=== PATIENT | male | born 1935 | race Caucasian/White ===

== ENCOUNTER 2022-06-25 11:21 | Outpatient (CLI) | payer MEDICARE, BC, SELFPAY | END 2022-06-25 11:22 | disposition home or self-care (01) | LOC: LKVREF 06-26 11:01 | PROVIDERS: PCP Family Medicine; Visit Provider Family Medicine | DX: R42 Dizziness and giddiness (principal) | CPT/HCPCS: 80048 ==

== ENCOUNTER 2023-05-09 22:09 | Outpatient (REF) | payer MEDICARE, BC, SELFPAY ==
[2023-05-09 23:03] LABS: Free T4 Free Thyroxine* 1.26 ng/dL (0.70-1.85)
[2023-05-10 08:49] LABS: Glucose* 151 mg/dL (60-115)
[2023-05-10 08:49] LABS: Glucose* 97 mg/dL (60-115)
[2023-05-16 10:28] LABS: Vitamin B6 (Pyridoxal 5-Phos) 13.9 nmol/L (20.0-125.0)
== END 2023-05-09 22:10 | disposition home or self-care (01) ==
LOC: NPINS 22:09
PROVIDERS: PCP Family Medicine; Visit Provider Psychiatry & Neurology Neurology
DX: R41.3 Other amnesia (principal); G60.9 Hereditary and idiopathic neuropathy, unspecified; G20 Parkinson's disease; G25.81 Restless legs syndrome
CPT/HCPCS: 82947; 84207; 84439

== ENCOUNTER 2023-09-12 08:55 | Outpatient (CLI) | payer MEDICARE, BC, SELFPAY | END 2023-09-12 08:56 | disposition home or self-care (01) | LOC: NFLDREF 09-20 04:18 | PROVIDERS: PCP Family Medicine; Referring Provider Family Medicine; Visit Provider Family Medicine | DX: Z13.6 Encounter for screening for cardiovascular disorders (principal); Z13.9 Encounter for screening, unspecified | CPT/HCPCS: 80053; 80061 ==

== ENCOUNTER 2023-09-16 14:52 | Outpatient (CLI) | payer MEDICARE, BC, SELFPAY | END 2023-09-16 14:53 | disposition home or self-care (01) | PROVIDERS: PCP Family Medicine; Visit Provider Family Medicine | DX: E78.1 Pure hyperglyceridemia (principal); G62.9 Polyneuropathy, unspecified; G25.81 Restless legs syndrome; Z13.0 Encounter for screening for diseases of the blood and blood-forming organs and certain disorders involving the immune mechanism; G20.A1 Parkinson's disease without dyskinesia, without mention of fluctuations; R41.3 Other amnesia | CPT/HCPCS: 82607; 82728; 84443 ==

== ENCOUNTER 2024-01-15 06:05 | Emergency (ER) | payer MEDICARE, BC, SELFPAY ==
[2024-01-15 06:08] VITALS: BP 134/71; PULSE 83; RESP 16; TEMP 36.5; O2SAT 94; BMI 25.1
--- NOTE | 2024-01-15 06:30 | CT_ITS ---
Patient: RODNEY MARIE Facility:?[facility] [place] [facility] Patient ID:?[id number] Site Patient ID:?[id number]. Site :?[id number] Study:?CT-Abdomen/Pelvis W/ ISOVUE 370-01/15/2024 7:39:54 AM Ordering Physician:LILIAN Final Report: INDICATION: LLQ PAIN TECHNIQUE: CT abdomen and pelvis with 89 cc Isovue 370 IV contrast. COMPARISON: CT abdomen pelvis November 13, 2018. FINDINGS: The liver is normal in size, shape and attenuation. Gallbladder and biliary tree are normal. Punctate calcifications within the spleen likely sequela of prior granulomatous process. No adrenal nodule. Moderately atrophic pancreas. Kidneys enhance symmetrically. Bilateral renal parapelvic cysts. No hydronephrosis. Unremarkable bladder. No evidence of bowel obstruction. Unremarkable appendix. Mild stool burden. Colonic diverticulosis without evidence of diverticulitis. The stomach is decompressed. Small hiatal hernia. No significant free fluid and no free air. Severe abdominal aortic atherosclerotic calcifications. Tiny fat containing umbilical hernia. Prostatomegaly measuring 5.3 x 6.1 x 6.4 centimeters, previously 5.0 x 5.7 x 5.2 centimeters. Similar appearance of questionable heterogenous enhancing nodule within the left anterior prostate. There recommend correlation with physical exam and PSA. Left basilar opacities which may represent atelectasis or consolidation. Coronary artery calcifications. Multilevel degenerate spondylosis without evidence of acute fracture or aggressive osseous lesion. IMPRESSION: 1. Increasing prostatomegaly with similar appearance of questionable heterogenous enhancing nodule within the left anterior prostate. Similar to recommend correlation with physical exam and PSA. 2. Colonic diverticulosis without evidence of diverticulitis. 3. Left basilar opacities which may represent atelectasis or consolidation. 4. Small hiatal hernia. Please note that all CT scans at this facility use dose modulation, iterative reconstruction, and/or weight-based dosing when appropriate to reduce radiation dose to as low as reasonably achievable. Dictated by Blue Valladares MD @ 01/15/2024 8:05:56 AM Signed by:?Blue Valladares MD @01/15/2024 8:05:56 AM (Electronic Signature)
--- NOTE | 2024-01-15 06:37 | ED.GENADULT ---
HPI - General Adult General Chief complaint: Abdominal Pain <Myrna Clemente MD - Last Filed: 01/19/24 01:34> Stated complaint: abdominal pain <Myrna Clemente MD - Last Filed: 01/19/24 01:34> Time Seen by Provider: 01/15/24 06:16 <Myrna Clemente MD - Last Filed: 01/19/24 01:34> Source: patient and EMS <Myrna Clemente MD - Last Filed: 01/19/24 01:34> Mode of arrival: EMS <Myrna Clemente MD - Last Filed: 01/19/24 01:34> History of Present Illness HPI narrative: 88-year-old male with history of dementia and Parkinson's disease presents to the emergency department with left-sided abdominal pain that started last night. He is not much of a historian but he is very sweet. He can not really localize the pain on description or exam for me, is very vague. States that his last bowel movement was 2 days ago, no diarrhea or bloody stools. Appetite has remained good. No nausea or vomiting. I asked if the pain was worsening causing him to be concerned to come to the emergency department in the wee hours of the morning, he cannot really answer that question for me. He has not tried taking any Tylenol, ibuprofen or any other interventions to try to help with his pain. He wonders if it is a pulled muscle. There is no fall, injury or trauma. No dysuria, hematuria. No rash, no itching. No fever. Denies any history of similar symptoms. No prior history of abdominal surgeries per his report. When I review his history, I see that he has a history of diverticulitis. When asked about this he does confirm that he has had this in the past. Says pain is worse with movement. Does not really give much else in terms of history. Past medical history notable for Parkinson's disease. Cognitive impairment per his last annual exam with his primary physician. Home meds are Flomax and Sinemet. Review of systems is notable for the abdominal and musculoskeletal symptoms as described above only, otherwise denies times 12 systems. <Myrna Clemente MD - Last Filed: 01/19/24 01:34> Related Data Home medications: Home Medications Medication Instructions Recorded Confirmed carbidopa 25 mg-levodopa 100 mg 2 tab PO DIRECTED 06/25/22 09/16/23 tablet carbidopa ER 50 mg-levodopa 200 mg 1 tab PO DIRECTED 06/25/22 09/16/23 tablet,extended release Previous Rx's Medication Instructions Recorded donepezil 5 mg tablet 5 mg PO QDAY #90 tabs 09/16/23 tamsulosin 0.4 mg capsule 0.4 mg PO QDAY #90 caps 09/16/23 triamcinolone acetonide 0.1 % 1 applic topical BID PRN dry skin 09/16/23 topical cream #80 grams azithromycin 250 mg tablet See Rx Instructions PO .COMPLEX #6 01/15/24 (Zithromax Z-Nnamdi) tabs <Myrna Clemente MD - Last Filed: 01/19/24 01:34> Allergies/adverse reactions: Allergies Allergy/AdvReac Type Severity Reaction Status Date / Time No Known Drug Allergies Allergy Unverified 09/16/23 14:24 <Myrna Clemente MD - Last Filed: 01/19/24 01:34> [facility] Medical History: Medical History Encounter for Medicare annual wellness exam ?Z00.00 - Encounter for general adult medical examination without abnormal findings (ICD-10) Memory change ?R41.3 - Other amnesia (ICD-10) 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 - Personal history of other benign neoplasm (ICD-10) <Myrna Clemente MD - Last Filed: 01/19/24 01:34> Surgical History: Surgical History History of third molar tooth extraction ?K08.409 - Partial loss of teeth, unspecified cause, unspecified class (ICD-10) History of colonoscopy (05/25/10) ?Z98.890 - Other specified postprocedural states (ICD-10) <Myrna Clemente MD - Last Filed: 01/19/24 01:34> Family History: Family History Mother Stroke Father CHF (congestive heart failure) <Myrna Clemente MD - Last Filed: 01/19/24 01:34> Social History: Social History Narrative: exercises regularly- on treadmill at home nonsmoker rarely consumes alcohol Smoking Status: Never smoker Non-prescribed substance use: denies use Little interest or pleasure in doing things: more than half the days Feeling down, depressed, or hopeless: not at all <Myrna Clemente MD - Last Filed: 01/19/24 01:34> Exam Const: Vital Signs, click to edit/add: Vital Signs - 24 hr 01/15/24 06:08 01/15/24 07:55 01/15/24 08:02 Temperature 97.7 F Pulse Rate [Left P ulse Oximeter] 83 Respiratory Rate 16 Blood Pressure 143/77 H 151/78 H Blood Pressure [Ri ght Upper Arm] 134/71 Pulse Oximetry 94 Oxygen Delivery Me thod Room Air <Mryna Clemente MD - Last Filed: 01/19/24 01:34> Vital Signs, click to edit/add: Vital Signs - 24 hr 01/15/24 06:08 01/15/24 07:55 01/15/24 08:02 Temperature 97.7 F Pulse Rate [Left P ulse Oximeter] 83 Respiratory Rate 16 Blood Pressure 143/77 H 151/78 H Blood Pressure [Ri ght Upper Arm] 134/71 Pulse Oximetry 94 Oxygen Delivery Me thod Room Air <Chon Vazquez MD - Last Filed: 01/15/24 08:35> Documenting provider has reviewed patient's vital signs: yes <Myrna Clemente MD - Last Filed: 01/19/24 01:34> Common normals: no apparent distress and alert <Myrna Clemente MD - Last Filed: 01/19/24 01:34> General appearance: cooperative and comfortable <Myrna Clemente MD - Last Filed: 01/19/24 01:34> Other: Cognitive impairment noted. No signs of acute delirium <Myrna Clemente MD - Last Filed: 01/19/24 01:34> HENMT: Common normals: normocephalic, moist oral mucous membranes and oropharynx normal <MD Praveen Foster Last Filed: 01/19/24 01:34> Head and scalp: normocephalic <MD Praveen Foster Last Filed: 01/19/24 01:34> Face and sinus: normal facial exam <MD Praveen Foster Last Filed: 01/19/24 01:34> Mouth: oral and palatal mucosa normal <MD Praveen Foster Last Filed: 01/19/24 01:34> Throat: posterior oropharynx normal <MD Praveen Foster Last Filed: 01/19/24 01:34> Eye: Common normals: conjunctivae normal <MD Praveen Foster Last Filed: 01/19/24 01:34> General eye: normal appearance of both eyes <MD Praveen Foster Last Filed: 01/19/24 01:34> Conjunctiva: conjunctiva(e) normal <MD Praveen Foster Last Filed: 01/19/24 01:34> Neck & C-Spine: Common normals: full ROM and no lymphadenopathy <MD Praveen Foster Last Filed: 01/19/24 01:34> Resp: Common normals: normal respiratory effort, no use of accessory muscles and clear to auscultation bilaterally <MD Praveen Foster Last Filed: 01/19/24 01:34> Effort & inspection: able to speak in complete sentences <MD Praveen Foster Last Filed: 01/19/24 01:34> Auscultation: clear to auscultation bilaterally <MD Praveen Foster Last Filed: 01/19/24 01:34> Cardio: Common normals: regular rate, regular rhythm, S1 normal heart sound, S2 normal heart sound and no murmurs <MD Praveen Foster Last Filed: 01/19/24 01:34> Rate: regular rate <MD Praveen Foster Last Filed: 01/19/24 01:34> Rhythm: regular rhythm <MD Praveen Foster Last Filed: 01/19/24 01:34> Heart sounds: S1 normal and S2 normal <MD Praveen Foster Last Filed: 01/19/24 01:34> GI: Common normals: Normal to inspection, nondistended, normoactive bowel sounds present, no hepatosplenomegaly and no masses <MD Praveen Foster Last Filed: 01/19/24 01:34> Palpation: no hepatosplenomegaly <MD Praveen Foster Last Filed: 01/19/24 01:34> Other: Tenderness to palpation of left lower quadrant with no rebound tenderness or guarding. <MD Praveen Foster Last Filed: 01/19/24 01:34> : Common normals: no CVA tenderness <MD Praveen Foster Last Filed: 01/19/24 01:34> Bladder/kidney exam: no CVA tenderness <MD Praveen Foster Last Filed: 01/19/24 01:34> Back & Pelvis: Common normals: no CVA tenderness <MD Praveen Foster Last Filed: 01/19/24 01:34> Thoracic spine/upper back: normal to inspection; no thoracic spinal tenderness and no paraspinal muscle tenderness <MD Praveen Foster Last Filed: 01/19/24 01:34> Lumbar spine/lower back: normal to inspection; no lumbar spinal tenderness and no paraspinal muscle tenderness <MD Praveen Foster Last Filed: 01/19/24 01:34> Extremity: Common normals: normal to inspection and normal capillary refill <MD Praveen Foster Last Filed: 01/19/24 01:34> Other: Trace dependent edema. <MD Praveen Foster Last Filed: 01/19/24 01:34> Neuro: Sensorium/orientation: alert <MD Praveen Foster Last Filed: 01/19/24 01:34> Other: Fairly good strength. Can pull himself up with the side rails and hold himself steady. No obvious focal deficit. Normal speech. <Myrna Clemente MD - Last Filed: 01/19/24 01:34> Psych: Attitude: engaged <Myrna Clemente MD - Last Filed: 01/19/24 01:34> Activity/motor behavior: appropriate eye contact <MD Praveen Foster Last Filed: 01/19/24 01:34> Insight: fair <Myrna Clemente MD - Last Filed: 01/19/24 01:34> Judgement: fair <MD Praveen Foster Last Filed: 01/19/24 01:34> Skin: Common normals: no rashes or lesions noted <Myrna Clemente MD - Last Filed: 01/19/24 01:34> General skin exam: no rashes or lesions noted <Myrna Clemente MD - Last Filed: 01/19/24 01:34> Course Course ED Course: 88-year-old male with limited history due to cognitive impairment and vague description of left-sided abdominal pain. Exam is suggestive of left lower quadrant abdominal pain. Differential diagnosis including kidney stone, pyelonephritis, most likely diverticulitis, cannot exclude colitis, pancreatitis, musculoskeletal etiology, amongst others. Recommend CT of the abdomen and pelvis, urinalysis, basic labs. Will start with just some Tylenol for pain control as he does seem fairly comfortable and we can always advance this as needed. Will place peripheral IV to facilitate CT scan. <Myrna Clemente MD - Last Filed: 01/19/24 01:34> Vital Signs Vital signs: Initial Vital Signs Temperature 97.7 F 01/15/24 06:08 Temperature Source Temporal Artery Scan 01/15/24 06:08 Pulse Rate 83 01/15/24 06:08 Respiratory Rate 16 01/15/24 06:08 Blood Pressure 134/71 01/15/24 06:08 Blood Pressure Mean 92 01/15/24 06:08 Blood Pressure Position Supine 01/15/24 06:08 Pulse Oximetry 94 01/15/24 06:08 Oxygen Delivery Method Room Air 01/15/24 06:08 Vital Signs Temperature 97.7 F 01/15/24 06:08 Pulse Rate 83 01/15/24 06:08 Respiratory Rate 16 01/15/24 06:08 Blood Pressure 134/71 01/15/24 06:08 Pulse Oximetry 94 01/15/24 06:08 Oxygen Delivery Method Room Air 01/15/24 06:08 Temperature 97.7 F 01/15/24 06:08 Pulse Rate 83 01/15/24 06:08 Respiratory Rate 16 01/15/24 06:08 Blood Pressure 151/78 H 01/15/24 08:02 Pulse Oximetry 94 01/15/24 06:08 Oxygen Delivery Method Room Air 01/15/24 06:08 <Myrna Clemente MD - Last Filed: 01/19/24 01:34> Initial Vital Signs Temperature 97.7 F 01/15/24 06:08 Temperature Source Temporal Artery Scan 01/15/24 06:08 Pulse Rate 83 01/15/24 06:08 Respiratory Rate 16 01/15/24 06:08 Blood Pressure 134/71 01/15/24 06:08 Blood Pressure Mean 92 01/15/24 06:08 Blood Pressure Position Supine 01/15/24 06:08 Pulse Oximetry 94 01/15/24 06:08 Oxygen Delivery Method Room Air 01/15/24 06:08 Vital Signs Temperature 97.7 F 01/15/24 06:08 Pulse Rate 83 01/15/24 06:08 Respiratory Rate 16 01/15/24 06:08 Blood Pressure 134/71 01/15/24 06:08 Pulse Oximetry 94 01/15/24 06:08 Oxygen Delivery Method Room Air 01/15/24 06:08 Temperature 97.7 F 01/15/24 06:08 Pulse Rate 83 01/15/24 06:08 Respiratory Rate 16 01/15/24 06:08 Blood Pressure 151/78 H 01/15/24 08:02 Pulse Oximetry 94 01/15/24 06:08 Oxygen Delivery Method Room Air 01/15/24 06:08 <Chon Vazquez MD - Last Filed: 01/15/24 08:35> Medications Administered Medications: Discontinued Medications Generic Name Dose Route Start Last Admin Trade Name Freq PRN Reason Stop Dose Admin Acetaminophen 650 mg 01/15/24 06:30 01/15/24 06:47 Acetaminophen 325 Mg Tablet PO 01/15/24 06:31 650 mg ONCE ONE Administration Carbidopa/Levodopa 1 tab 01/15/24 08:47 01/15/24 09:09 Carbidopa-Levo Er 50-200 Tablet.Er PO 01/15/24 08:48 1 tab ONCE ONE Administration Sodium Chloride 1,000 mls @ 500 mls/hr 01/15/24 07:22 01/15/24 09:02 0.9 % Sodium Chloride 1000 Ml IV 01/15/24 09:21 500 mls/hr .Q2H EMILIANO Infusion Ceftriaxone Sodium 500 mg/ 100 mls @ 200 mls/hr 01/15/24 08:13 01/15/24 09:02 Sodium Chloride IVPB 01/15/24 08:14 Infused ONCE ONE Infusion <Myrna Clemente MD - Last Filed: 01/19/24 01:34> Discontinued Medications Generic Name Dose Route Start Last Admin Trade Name Freq PRN Reason Stop Dose Admin Acetaminophen 650 mg 01/15/24 06:30 01/15/24 06:47 Acetaminophen 325 Mg Tablet PO 01/15/24 06:31 650 mg ONCE ONE Administration Carbidopa/Levodopa 1 tab 01/15/24 08:47 01/15/24 09:09 Carbidopa-Levo Er 50-200 Tablet.Er PO 01/15/24 08:48 1 tab ONCE ONE Administration Sodium Chloride 1,000 mls @ 500 mls/hr 01/15/24 07:22 01/15/24 09:02 0.9 % Sodium Chloride 1000 Ml IV 01/15/24 09:21 500 mls/hr .Q2H EMILIANO Infusion Ceftriaxone Sodium 500 mg/ 100 mls @ 200 mls/hr 01/15/24 08:13 01/15/24 09:02 Sodium Chloride IVPB 01/15/24 08:14 Infused ONCE ONE Infusion <Chon Vazquez MD - Last Filed: 01/15/24 08:35> Medical Decision Making MDM Narrative Medical decision making narrative: Addendum at 8:[address] the patient's CT scan of the abdomen looks pretty unremarkable other some basilar atelectasis versus mild pneumonia. I think it be reasonable to cover him with Zithromax, and does not appear as anterior injure any intra-abdominal pathology noted on CT scanning. His CRP is minimally elevated may be consistent with infection, he also has no evidence of blood work abnormality, urinalysis was pretty unremarkable. Will treat with antibiotics, time Tylenol and observation and recheck with regular physician the next 12:48 p.m.. Certainly he could have chronic atelectasis and a strained muscle in his back which case I think Tylenol in time would be appropriate, because he may have mild pneumonia would also cover with Zithromax as mention. <Chon Vazquez MD - Last Filed: 01/15/24 08:35> Lab Data Lab results reviewed: Yes I reviewed the patient's lab results <Myrna Clemente MD - Last Filed: 01/19/24 01:34> Lab results narrative: CRP elevated. No significant leukocytosis but there is a slight left shift. Absolute neutrophil count is a little elevated. Electrolytes look great, kidney function is also quite good for age. Urine is very concentrated but with no obvious signs of infection. Will bolus 1 L of fluid over 2 hours. <Myrna Clemente MD - Last Filed: 01/19/24 01:34> Labs: Lab Results 01/15/24 Range/Units 06:35 WBC 10.60 (4.50-11.00) K/uL RBC 4.33 (4.30-5.90) m/uL Hgb 13.9 (13.5-17.5) gm/dL Hct 41.8 (37.0-53.0) % MCV 97 (80-100) fL MCH 32 (26-34) pg MCHC 33 (32-36) gm/dL RDW Coeff of Justo 12.6 (11.5-15.5) % Plt Count 198 (140-440) K/uL Neut % (Auto) 87.3 H (42.0-72.0) % Lymph % (Auto) 4.3 L (20-44) % [place] % (Auto) 7.9 (0.0-11.0) % Eos % (Auto) 0.1 (0.0-7.0) % Baso % (Auto) 0.1 (0.0-3.0) % Neut # (Auto) 9.30 H (1.7-7.0) K/uL Lymph # (Auto) 0.50 L (0.90-2.90) K/uL [place] # (Auto) 0.80 (0.00-0.90) K/UL Eos # (Auto) 0.01 (0.00-0.50) K/uL Baso # (Auto) 0.01 (0.00-0.30) K/uL Abs Immat Gran (auto) 0.03 (0.00-0.30) K/uL Imm/Tot Granulo (auto) 0.3 % Sodium 137 (135-149) mmol/L Potassium 4.1 (3.6-5.1) mmol/L Chloride 103 (96-114) mmol/L Carbon Dioxide 27 (20-32) mmol/L Anion Gap 7 (7-15) mEq/L BUN 24 (7-30) mg/dL Creatinine 0.8 (0.5-1.5) mg/dL Estimated Creat Clear 56.48 Estimated GFR 86 ml/min Glucose 118 H (60-115) mg/dL Lactate 0.8 (0.5-1.9) mmol/L Calcium 9.3 (8.4-10.6) mg/dL Total Bilirubin 0.9 (0.1-1.5) mg/dL AST 17 (12-35) U/L ALT 6 (4-50) U/L Alkaline Phosphatase 76 (40-150) U/L C-Reactive Protein 6.1 H (0.5-1.0) mg/dL Total Protein 7.2 (6.0-8.3) g/dL Albumin 4.2 (3.3-5.0) g/dL Lipase 12 L (23-300) U/L Urine Color Brown A (Yellow) Urine Appearance Clear (Clear) Urine pH 6.0 (5.0-8.5) Ur Specific [place] >= 1.030 (1.000-1.030) Urine Protein Trace A (Negative) Urine Glucose (UA) Negative (Negative) Urine Ketones 1+ A (Negative) Urine Blood Negative (Negative) Urine Nitrite Negative (Negative) Urine Bilirubin Negative (Negative) Urine Urobilinogen 0.2 (0.2-1.0) Ur Leukocyte Esterase Negative (Negative) Urine RBC 0-2 (0-2) Urine WBC 0-2 (0-5) Ur Squamous Epith Cells Few (None-Few) Urine Bacteria None (None) Urine Mucus Many A (None) <Myrna Clemente MD - Last Filed: 01/19/24 01:34> Lab Results 01/15/24 Range/Units 06:35 WBC 10.60 (4.50-11.00) K/uL RBC 4.33 (4.30-5.90) m/uL Hgb 13.9 (13.5-17.5) gm/dL Hct 41.8 (37.0-53.0) % MCV 97 (80-100) fL MCH 32 (26-34) pg MCHC 33 (32-36) gm/dL RDW Coeff of Justo 12.6 (11.5-15.5) % Plt Count 198 (140-440) K/uL Neut % (Auto) 87.3 H (42.0-72.0) % Lymph % (Auto) 4.3 L (20-44) % [place] % (Auto) 7.9 (0.0-11.0) % Eos % (Auto) 0.1 (0.0-7.0) % Baso % (Auto) 0.1 (0.0-3.0) % Neut # (Auto) 9.30 H (1.7-7.0) K/uL Lymph # (Auto) 0.50 L (0.90-2.90) K/uL [place] # (Auto) 0.80 (0.00-0.90) K/UL Eos # (Auto) 0.01 (0.00-0.50) K/uL Baso # (Auto) 0.01 (0.00-0.30) K/uL Abs Immat Gran (auto) 0.03 (0.00-0.30) K/uL Imm/Tot Granulo (auto) 0.3 % Sodium 137 (135-149) mmol/L Potassium 4.1 (3.6-5.1) mmol/L Chloride 103 (96-114) mmol/L Carbon Dioxide 27 (20-32) mmol/L Anion Gap 7 (7-15) mEq/L BUN 24 (7-30) mg/dL Creatinine 0.8 (0.5-1.5) mg/dL Estimated Creat Clear 56.48 Estimated GFR 86 ml/min Glucose 118 H (60-115) mg/dL Lactate 0.8 (0.5-1.9) mmol/L Calcium 9.3 (8.4-10.6) mg/dL Total Bilirubin 0.9 (0.1-1.5) mg/dL AST 17 (12-35) U/L ALT 6 (4-50) U/L Alkaline Phosphatase 76 (40-150) U/L C-Reactive Protein 6.1 H (0.5-1.0) mg/dL Total Protein 7.2 (6.0-8.3) g/dL Albumin 4.2 (3.3-5.0) g/dL Lipase 12 L (23-300) U/L Urine Color Brown A (Yellow) Urine Appearance Clear (Clear) Urine pH 6.0 (5.0-8.5) Ur Specific [place] >= 1.030 (1.000-1.030) Urine Protein Trace A (Negative) Urine Glucose (UA) Negative (Negative) Urine Ketones 1+ A (Negative) Urine Blood Negative (Negative) Urine Nitrite Negative (Negative) Urine Bilirubin Negative (Negative) Urine Urobilinogen 0.2 (0.2-1.0) Ur Leukocyte Esterase Negative (Negative) Urine RBC 0-2 (0-2) Urine WBC 0-2 (0-5) Ur Squamous Epith Cells Few (None-Few) Urine Bacteria None (None) Urine Mucus Many A (None) <Chon Vazquez MD - Last Filed: 01/15/24 08:35> Discharge Plan Discharge Clinical Impression: Acute left-sided back pain, Pneumonia <Myrna Clemente MD - Last Filed: 01/19/24 01:34> Patient Disposition: Home w/ Parent or Adult <Myrna Clemente MD - Last Filed: 01/19/24 01:34> Condition: Stable <Myrna Clemente MD - Last Filed: 01/19/24 01:34> Additional Instructions: Light activity, Zithromax Z-Nnamdi as prescribed, may take Tylenol as needed, may put ice on the affected area, would recommend observation and recheck with regular doctor next 3-4 days certainly sooner changes or concerns. <Myrna Clemente MD - Last Filed: 01/19/24 01:34> Activity Level: Light activity <Myrna Clemente MD - Last Filed: 01/19/24 01:34> Light activity <Chon Vazquez MD - Last Filed: 01/15/24 08:35> Prescriptions: New azithromycin [Zithromax Z-Nnamdi] 250 mg tablet See Rx Instructions .ROUTE .COMPLEX Qty: 6 0RF Rx Instructions: For 250 mg dose pack: take 500 mg today (day 1), then 250 mg for 4 days (days 2-5) No Action carbidopa-levodopa 25-100 mg tablet 2 tab PO DIRECTED Rx Instructions: 2 tabs at 0400, 2 tabs at 0800, 3 tabs at 1200, 3 tabs at 1600, 3 tabs at 2000, and <3 tabs at 2230. carbidopa-levodopa 50-200 mg tablet extended release 1 tab PO DIRECTED Rx Instructions: 1 tab at 0400, 1 tab at 0800, and 1 tab at 2230. donepezil 5 mg tablet 5 mg PO QDAY Qty: 90 3RF tamsulosin 0.4 mg capsule 0.4 mg PO QDAY Qty: 90 3RF triamcinolone acetonide 0.1 % cream 1 applic topical BID PRN (Reason: dry skin) Qty: 80 1RF <Myrna Clemente MD - Last Filed: 01/19/24 01:34> Follow Up/Referrals: Sheldon Álvarez MD [Primary Care Provider] - <Myrna Clemente MD - Last Filed: 01/19/24 01:34> Stand Alone Forms: [facility] Info Instructions <Myrna Clemente MD - Last Filed: 01/19/24 01:34>
[2024-01-15 06:43] LABS: Lactate* 0.8 mmol/L (0.5-1.9)
[2024-01-15] MEDS: ACETAMINOPHEN 325 MG TABLET 650 MG PO (06:47)
[2024-01-15 06:54] LABS: Basophils Absolute Auto 0.01 K/uL (0.00-0.30); Basophils Percent Auto 0.1 % (0.0-3.0); Eosinophils Absolute Auto 0.01 K/uL (0.00-0.50); Eosinophils Percent Auto 0.1 % (0.0-7.0); Hematocrit 41.8 % (37.0-53.0); Hemoglobin* 13.9 gm/dL (13.5-17.5); Immature Granulocytes Abs Auto 0.03 K/uL (0.00-0.30); Immature Granulocytes Pct Auto 0.3 %; Lymphocytes Percent Auto 4.3 % (20-44); Mean Corpuscular HGB Conc 33 gm/dL (32-36); Mean Corpuscular Hemoglobin 32 pg (26-34); Mean Corpuscular Volume 97 fL (80-100); Monocytes Percent Auto 7.9 % (0.0-11.0); Neutrophils Percent Auto 87.3 % (42.0-72.0); Platelet Count* 198 K/uL (140-440); RDW Coefficient of Variation % 12.6 % (11.5-15.5); Red Blood Count 4.33 m/uL (4.30-5.90)
[2024-01-15 06:57] LABS: Appearance Urine Clear (Clear); Color Urine Brown (Yellow)
[2024-01-15 06:58] LABS: Bilirubin Urine Negative (Negative); Blood Urine Negative (Negative); Glucose Urine Negative (Negative); Ketones Urine 1+ (Negative); Leukocyte Esterase Urine Negative (Negative); Nitrite Urine Negative (Negative); Protein Urine Trace (Negative); Specific Gravity Urine >= 1.030 (1.000-1.030); Urobilinogen Urine 0.2 (0.2-1.0)
[2024-01-15 06:59] LABS: Mucus Urine Many; RBC Urine 0-2 (0-2); Slide Review Reflex No; Squamous Epithelial Cell Urine Few (None-Few); WBC Urine 0-2 (0-5)
[2024-01-15 07:09] LABS: Albumin* 4.2 g/dL (3.3-5.0); Chloride* 103 mmol/L (96-114)
[2024-01-15 07:10] LABS: Potassium* 4.1 mmol/L (3.6-5.1); Sodium* 137 mmol/L (135-149)
[2024-01-15 07:12] LABS: Creatinine* 0.8 mg/dL (0.5-1.5); Est. Creatinine Clearance* 56.48; Estimated Glomerular Filt Rate 86 ml/min
[2024-01-15 07:13] LABS: Alanine Aminotransferase* 6 U/L (4-50); Alkaline Phosphatase* 76 U/L (40-150); Anion Gap 7 mEq/L (7-15); Aspartate Amino Transferase* 17 U/L (12-35); Bilirubin Total* 0.9 mg/dL (0.1-1.5); Blood Urea Nitrogen* 24 mg/dL (7-30); Calcium* 9.3 mg/dL (8.4-10.6); Carbon Dioxide* 27 mmol/L (20-32); Glucose* 118 mg/dL (60-115); Lipase* 12 U/L (23-300); Total Protein* 7.2 g/dL (6.0-8.3)
[2024-01-15 07:15] LABS: C Reactive Protein* 6.1 mg/dL (0.5-1.0)
[2024-01-15] MEDS: 0.9 % SODIUM CHLORIDE 1000 ml 1,000 ML 500 ML IV (07:53)
[2024-01-15 07:55] VITALS: BP 143/77
[2024-01-15 08:02] VITALS: BP 151/78
[2024-01-15] MEDS: cefTRIAXone 500 MG in 0.9 % SODIUM CHLORIDE Mini-bag 100 ML 200 MG IVPB (08:25)
== END 2024-01-15 10:40 | disposition home or self-care (01) ==
PROVIDERS: Emergency Provider Family Medicine; PCP Family Medicine
DX: J18.9 Pneumonia, unspecified organism (principal); M54.9 Dorsalgia, unspecified
CPT/HCPCS: 36415; 74177; 80053; 81001; 81003; 83605; 83690; 85025; 86140; 99284; 99285; A9270; J0696; J7030; Q9967

== ENCOUNTER 2024-02-06 11:32 | Outpatient (CLI) | payer MEDICARE, BC, SELFPAY | END 2024-02-06 11:33 | disposition home or self-care (01) | PROVIDERS: PCP Family Medicine; Visit Provider Family Medicine | DX: Z12.5 Encounter for screening for malignant neoplasm of prostate (principal); R63.4 Abnormal weight loss | CPT/HCPCS: 84443; G0103 ==

== ENCOUNTER 2024-03-11 14:26 | Outpatient (REF) | payer MEDICARE, BC, SELFPAY ==
[2024-03-11 15:27] LABS: Hemoglobin A1C* 5.9 % (0-5.6)
[2024-03-11 16:07] LABS: Vitamin B12* 372 pg/mL (243-894)
[2024-03-15 17:53] LABS: Vitamin B6 (Pyridoxal 5-Phos) 50.4 nmol/L (20.0-125.0)
[2024-03-19 15:40] LABS: MMA Vitamin B12 Status 0.21 umol/L (0.00-0.40)
== END 2024-03-11 14:27 | disposition home or self-care (01) ==
LOC: NPINS 14:26
PROVIDERS: PCP Family Medicine; Visit Provider Psychiatry & Neurology Neurology
DX: G20.A1 Parkinson's disease without dyskinesia, without mention of fluctuations (principal); R73.03 Prediabetes; E53.1 Pyridoxine deficiency; R41.3 Other amnesia; G60.9 Hereditary and idiopathic neuropathy, unspecified
CPT/HCPCS: 82607; 83036; 84207

== ENCOUNTER 2024-04-29 10:00 | Outpatient (RCR) | payer MEDICARE, BC, SELFPAY ==
--- NOTE | 2024-03-19 19:30 | PT.OPE ---
PT [place] [facility] Eval Start: 03/17/24 16:50 Freq: Status: Active Protocol: Document 03/17/24 18:05 BMS (Rec: 03/17/24 18:06 BMS [id number]) E-signed By Shamika Gomez PT Physical Therapy Outpatient Evaluation Insurance Information Recert Due Date 06/14/24 Insurance Name Medicare B Provider Fax Number internal Medical Diagnosis R42 Dizziness and giddiness G20.A! Parkinson's disease R26.81 unsteady on feet Treating Diagnosis R26.89 abnormal gait M62.81 generalized mm weakness R26.9 falls Referring MD Sheldon Álvarez MD Subjective Subjective tend to fall over backward, have lost flexibility and stability. have parkinsons disease, have memory troubles. have had lots of close calls. using cane I made. had cataract surgery both sides, most recent 3 weeks ago. have some lightheadedness but not spinning. am tired and fatigued with less stength. 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 Pain Comments pain in neck and back, worse with looking up. 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 Precautions/contraind Memory change, weight loss, Gait instability RLS PD Polyneuropathy Gait instability falls Therapy Limitations/Systems Review Cognition,Vision,Other Medical Problem Objective Range of Motion cervical ext only to neutral with hard endfeel. rotation L = 15, R =30. SB B 20 B shoulders WNL ankle DF B to neutral knee B WNL Strength MMT seated R quad and HS 4/5 ankles B 5/5. hip flex B 4+5. Palpation increased myofascial restrictions throughout neck, upper and lower back. Balance & Gait SPC downward gaze, significant thoracic kyphosis, hip flexion and knee flex in standing, uses SPC for gait with mod path deviation. decreased stride length and speed, limited ability to modify speed. direction changes result in off balance if executed quickly. Sit to stand with posterior lean, requires multiple attempts. also lacks forward weight shift for sit to stand. impaired foot placement. foot flat initial contact. Posture head forward, inc thoracic kyphosis with limited hip flexor mobility, tight calves. sacral sit in chair. weight in standing more toward hels. Sensation/Reflexes able to perform 5 nose to finger, FRANCISCO, heel ruiz slide and point past point without problem. VOR and gaze stab, smooth pursuits not accurate due to ongoing vision changes after cataract surgery, convergence is ~ 2 feet in front of nose. Functional Test Performed & Score Tinetti Balance Assessment Tool Summary 1. Sitting balance: Sitting balance is steady, safe (1 points) 2. Rises from chair: Rises from chair using arms to help (1 points) 3. Attempts to rise: Rises from chair with > 1 attempt (1 points) 4. Immediate standing balance (first 5 seconds): Steady immediate standing balance (with support) (1 points) 5. Standing balance: Steady standing balance (with support and wide stance) (1 points) 6. Nudged: Steady when nudged (2 points) 7. Eyes closed: Begins to fall when nudged (0 points) 8. Turning 360?: Discontinuous steps when turning 360? (0 points) 8. Turning 360?: Steady when turning 360? (1 points) 9. Sitting down: Uses arms or not a smooth motion when sitting down (1 points) Balance score: 07/13=56.3 percent. Graphical Balance score: 10. Indication of gait ( immediately after told to go.) : Hesitancy or multiple attempts initiating gait (0 points) 11.a. Step length and height: Right foot passes left stance foot (1 points) 11.b. Step length and height: Left foot passes right stance foot (1 points) 11.c. Step length and height: Right foot completely clears floor with step (1 points) The tools listed on this website do not substitute for the informed opinion of a licensed physician or other health care provider. All scores should be re- checked. Please see our full Terms of Use. 11.d. Step length and height: Left foot completely clears floor with step (1 points) 12. Step Symmetry: Right and left step appear equal (1 points) 13. Step Continuity: Steps appear continuous (1 points) 14. Path: Mild/moderate path deviation or uses walking aid (1 points) 15. Trunk: Marked sway in path or uses walking aid (0 points) 16. Walking stance: Heels almost touching while walking (1 points) Gait score: 06/08=66.7 percent. Graphical Gait score: Total Tinetti score: =60.7 percent Assessment Assessment/Impression Patient is pleasant 89 yo male referred to physical therapy for Parkinson's disease without dyskinesia, unsteadiness on feet, dizziness and giddiness, gait instability, lightheadedness. He also reports cataract surgery most recent was 3 weeks ago. He presents today with complaints of worsening gait and balance with numerous near miss falls. He lives at [facility] in [facility] with his who does have medical concerns of her own. They have the option for meals but patient states they often prepare easy meals in their apartment. They do have a inking machine tender that comes in a couple of hours a week to clean. Otherwise they manage themselves. Patient has been seen at our clinic in the past for Parkinson's and mobility, with reportedly good outcomes . His primary goals today are to increase his flexibility and stability, to reduce close calls and backward falls. He does appear more frail than when seen in the past. Patient does not currently do any exercises. Reports times of lightheadedness (not spinning) and loss of balance, citing the need to sit down to take his medications as looking up to swallow them causes him to fall over. Patient presents today with impaired gait and balance, uses single point cane that he carved but is insufficient for balance needs at this time. During assessment he demonstrates need to brace self against chair in sit to stand, and falls backward x 3. rise from sitting requires multiple attempts with limited forward translation. He is high fall risk, demonstrates functional weakness, poverty of motion, decreased speed and limited mobility through cervical spine. He does c/o pain in back and neck limiting activity, as well as very stooped posture changing center of gravity and contributing to pain and imbalance. He is appropriate for skilled physical therapy to address above limitations. He does also have some memory concerns and delayed cognitive processing with multitask. Primary Functional Limitations falls back, imbalance, impaired gait, weakness and atrophy, impaired posture, limited ROM and posture Plan of Care Rehabilitation Potential Good Physical Therapy Goals 1)Pt demo ability ascend/ descend stairs safely with use of 1 rail x 13 steps no evidence of imbalance for access to basement living level with no evidence of imbalance. 2) Pt demo ability to pass balance testing (SLS, DGI, Fukuda etc) out of high fall risk. 3) Pt demo appropriate gait pattern with no evidence of lack of balance with perturbations internal and external for shopping, community ambulation with least restrictive or no gait aid. 4) Patient to demo ability to safely and confidently negotiate curb with no or least restrictive gait aid. 3) Pt will demo 500' ambulation without limp and with best mechanics and balance to decrease risk of fall with community ambulation for things such as grocery shopping, participation in fitness activities. 4) Pt will demo ability to return to walking and functional strengthening for management of Parkinsons Disease to maximize independence and longevity. Coordination/Communication With Referral Source Treatment Plan/Direct Interventions Gait Training,Manual Therapy, Neuromuscular Re-ed,Self-Care/ Home Management,Therapeutic Activities,Therapeutic Exercises Frequency/Duration 1-2x/ week up to 12 weeks, up to 20 visits Patient Will Be Discharged From Therapy Completion of LTG(s),Skills Plateau,Independent w/HEP, Independently Progressing Evaluation Billing Untimed Code Treatment Minutes 30 Complexity Moderate Certification Information Initial Certification Date 03/17/24 Ending Certification Date 06/14/24 Provider Signature Shows Agreement With POC & Medical Necessity Physician Signature & Date Requested Please Sign/Date Here Physician Comment/Change : Physician NPI Number #
== END 2024-08-27 23:59 | disposition home or self-care (01) ==
PROVIDERS: PCP Family Medicine; Visit Provider Family Medicine
DX: R42 Dizziness and giddiness (principal); G20.A1 Parkinson's disease without dyskinesia, without mention of fluctuations; R26.81 Unsteadiness on feet; R26.89 Other abnormalities of gait and mobility; R29.6 Repeated falls; Z51.89 Encounter for other specified aftercare
CPT/HCPCS: 97110; 97112; 97116; 97162

== ENCOUNTER 2024-09-04 08:56 | Outpatient (CLI) | payer MEDICARE, OTHER, SELFPAY ==
--- NOTE | 2024-09-04 09:15 | MR_ITS ---
[address] [address] Phone:?[phone] Fax:?[phone] Referring Physician Information: Jonn Lopez PA-C [id number] [facility] [address] Phone:?[phone] Fax:?[phone] Patient:?Candelario Cai D.O.B:?1935 Sex:?Male Phone:?[phone] [facility] MRN:?[id number] Exam Date:?09/04/2024 EXAM: MR PROSTATE WITHOUT AND WITH CONTRAST CLINICAL INFORMATION: Elevated PSA. COMPARISON: None. TECHNICAL INFORMATION: Examination was performed on a 1.5T magnet. High- resolution T1 axial, T2 axial, T2 FSE sagittal and T2 FSE coronal images were obtained through the prostate gland and seminal vesicles. Diffusion images were obtained in the axial plane. 15 mL of Dotarem were injected with dynamic enhanced images of the prostate gland in the axial plane. T1 fat saturation sagittal and coronal images were obtained postinjection. Images were analyzed with 3-D postprocessing online under concurrent physician supervision using a separate [employer] workstation. INTERPRETATION: The prostate gland measures 6.0 x 5.0 x 5.8 cm (TV x AP x SI) for an estimated volume of 84 cc. Transitional and central zones: There is moderate glandular and stromal hyperplasia with well encapsulated BPH nodules (PI-RADS 2). Additionally: Lesion 1: Location: Left midgland TZ (Se 6 Im 14-18), at 1 o'clock position, 25 mm anterolateral to the prostatic urethra. Description: Partially encapsulated T2 hypointensity with moderate diffusion restriction and background hypervascularity measures 1.7 x 1.0 x 1.7 cm (TV x AP x SI) for an estimated volume of 2.4 cc. PI-RADS: 3 Peripheral zones: No focal PZ lesions concerning for clinically significant adenocarcinoma (PI-RADS 1). Pelvis: No january transcapsular disease. Neurovascular bundles and seminal vesicles appear intact. No pelvic lymphadenopathy or evident bone marrow disease. CONCLUSION: * Moderate prostatomegaly with BPH and an indeterminate (PI-RADS 3) lesion in the left anterolateral TZ. * No highly suspicious (PI-RADS 4 or 5) lesions identified. * No january transcapsular, kunal, or skeletal disease in the pelvis. PI-RADS Assessment Categories: Score 1 = very low; clinically significant disease highly unlikely Score 2 = low; clinically significant disease is unlikely Score 3 = intermediate; clinically significant disease is equivocal Score 4 = high; clinically significant disease is likely Score 5 = very high; clinically significant disease is highly likely Electronically signed on 09/06/2024 4:03:00 PM by Zeferino Joshi M.D.
== END 2024-09-04 08:57 | disposition home or self-care (01) ==
LOC: MRI 08:58
PROVIDERS: PCP Family Medicine; Visit Provider Student in an Organized Health Care Education/Training Program
DX: R97.20 Elevated prostate specific antigen [PSA] (principal)
CPT/HCPCS: 72197; A9575

== ENCOUNTER 2025-05-25 12:51 | Outpatient (CLI) | payer MEDICARE, BC, SELFPAY | END 2025-05-25 12:52 | disposition home or self-care (01) | PROVIDERS: PCP Family Medicine; Visit Provider Family Medicine | DX: R97.20 Elevated prostate specific antigen [PSA] (principal); N40.0 Benign prostatic hyperplasia without lower urinary tract symptoms; R62.7 Adult failure to thrive; R53.83 Other fatigue; R42 Dizziness and giddiness; Z12.5 Encounter for screening for malignant neoplasm of prostate | CPT/HCPCS: 80053; 84443; G0103 ==